=== PATIENT | female | born 1985 | race Caucasian/White ===

== ENCOUNTER 2021-08-18 08:30 | Emergency (ER) | payer OTHER ==
[~2021-08-18] VITALS: Ht 157.5 cm; Wt 85.6 kg
[2021-08-18] MEDS ORDERED: ONDA8TAB8 PO (08:59)
[2021-08-18] MEDS ORDERED: PRIL20TA2 PO (08:59)
[2021-08-18] MEDS ORDERED: NS 1,000 ML IV ONE (11:35)
[2021-08-18] MEDS ORDERED: ONDANSETRON 4MG/2ML VIAL IV ONE (12:05)
[2021-08-18 12:47] LABS: BASO % 0.2 % (0.0-1.0); EOS # 0.1 10^3/uL (0.0-0.5); EOS % 0.9 % (0.0-3.0); HEMATOCRIT 40.6 % (36.0-47.0); HEMOGLOBIN 13.8 g/dl (12.0-15.5); LYMPH # 1.8 10^3/uL (1.5-5.0); LYMPH % 20.2 % (24.0-44.0); MEAN CORPUSCULAR HEMOGLOBIN 30.1 pg (27.0-33.0); MEAN CORPUSCULAR VOLUME 88.5 fl (80.0-96.0); MONO # 0.6 10^3/uL (0.0-0.8); MONO % 6.1 % (2.0-8.0); NEUTROPHILS # 6.6 10^3/uL (1.5-8.5); NEUTROPHILS % 72.3 % (36.0-66.0); PLATELET COUNT, AUTOMATED 264 10^3/uL (150-450); RED BLOOD COUNT 4.59 10^6/uL (4.00-5.40); WHITE BLOOD COUNT 9.1 10^3/uL (4.0-10.0)
[2021-08-18 14:39] LABS: BASO % 0.2 % (0.0-1.0); EOS # 0.1 10^3/uL (0.0-0.5); EOS % 0.8 % (0.0-3.0); HEMATOCRIT 37.3 % (36.0-47.0); HEMOGLOBIN 12.8 g/dl (12.0-15.5); LYMPH # 1.5 10^3/uL (1.5-5.0); LYMPH % 16.7 % (24.0-44.0); MEAN CORPUSCULAR HEMOGLOBIN 30.8 pg (27.0-33.0); MEAN CORPUSCULAR HGB CONC 34.3 g/dl (32.0-36.5); MEAN CORPUSCULAR VOLUME 89.7 fl (80.0-96.0); MONO # 0.5 10^3/uL (0.0-0.8); MONO % 5.6 % (2.0-8.0); NEUTROPHILS % 76.3 % (36.0-66.0); PLATELET COUNT, AUTOMATED 264 10^3/uL (150-450); RED BLOOD COUNT 4.16 10^6/uL (4.00-5.40); WHITE BLOOD COUNT 9.2 10^3/uL (4.0-10.0)
[2021-08-18 15:00] LABS: ALBUMIN 3.3 GM/DL (3.2-5.2); ALT/SGPT 29 U/L (12-78); BILIRUBIN,DIRECT 0.2 MG/DL (0.0-0.2); BILIRUBIN,TOTAL 0.4 MG/DL (0.2-1.0); BLOOD UREA NITROGEN 10 MG/DL (7-18); CALCIUM LEVEL 9.1 MG/DL (8.5-10.1); CARBON DIOXIDE LEVEL 24 MEQ/L (21-32); CHLORIDE LEVEL 107 MEQ/L (98-107); GLOMERULAR FILTRATION RATE > 60.0 (>60); GLUCOSE, FASTING 84 MG/DL (70-100); LIPASE 56 U/L (73-393); POTASSIUM SERUM 3.8 MEQ/L (3.5-5.1); SODIUM LEVEL 139 MEQ/L (136-145); TOTAL PROTEIN 7.6 GM/DL (6.4-8.2)
[2021-08-18 16:45] VITALS: BP 138/85
== END 2021-08-18 16:46 | disposition home or self-care (01) ==
LOC: M ED 08:30
DX: O21.9 Vomiting of pregnancy, unspecified (principal); R10.9 Unspecified abdominal pain; Z3A.09 9 weeks gestation of pregnancy
CPT/HCPCS: 36415; 76801; 80048; 80076; 81001; 83690; 84702; 85025; 87086; 96361; 96374; 99284; J2405

== ENCOUNTER 2022-03-11 16:00 | Inpatient (IN) | payer OTHER ==
[~2022-03-11] VITALS: Ht 157.5 cm; Wt 107.8 kg
[~2022-03-11 16:00] MED LIST: ONDA8TAB8 PO; PRIL20TA2 PO
[2022-03-11] MEDS ORDERED: OXYTOCIN DRIP 30 UNITS in IV 1 EA IV PRN (16:10)
[2022-03-11] MEDS ORDERED: LIDOCAINE 1% MDV 20ML VIAL INFIL PRN (16:10)
[2022-03-11] MEDS ORDERED: CARBOPROST TROMETHAMINE 250 MCG/ML AMP IM PRN (16:10)
[2022-03-11] MEDS ORDERED: TRANEXAMIC ACID INJection 1,000 MG in NS 100 ML IV PRN (16:10)
[2022-03-11] MEDS ORDERED: METHYLERGONOVINE MALEATE 0.2 MG/ML VIAL (J2210) IM PRN (16:10)
[2022-03-11] MEDS ORDERED: LACTATED RINGER'S 1000 ML IV PRN (16:10)
[2022-03-11 16:22] VITALS: BP 130/74
[2022-03-11] MEDS ORDERED: HOME MED LIST COMPLETE! XX SCH (16:35)
[2022-03-11 17:29] VITALS: BP 143/90
[2022-03-11] MEDS ORDERED: miSOPROStol 50MCG 1/2 TABLET PO ONE (18:50)
[2022-03-11 19:03] LABS: HEMATOCRIT 39.8 % (36.0-47.0); HEMOGLOBIN 13.1 g/dl (12.0-15.5); MEAN CORPUSCULAR HEMOGLOBIN 29.4 pg (27.0-33.0); MEAN CORPUSCULAR HGB CONC 32.9 g/dl (32.0-36.5); MEAN CORPUSCULAR VOLUME 89.4 fl (80.0-96.0); PLATELET COUNT, AUTOMATED 233 10^3/uL (150-450); RED BLOOD COUNT 4.45 10^6/uL (4.00-5.40); WHITE BLOOD COUNT 11.1 10^3/uL (4.0-10.0)
[2022-03-11 19:47] LABS: GLUCOSE,RANDOM 81 MG/DL (LESS THAN 200)
[2022-03-11 20:01] VITALS: BP 122/87
[2022-03-11 20:44] VITALS: BP 130/84
[2022-03-11 21:45] VITALS: BP 111/67
[2022-03-11 22:15] VITALS: BP 134/86
[2022-03-12] VITALS (46 sets, daily range): BP systolic 100–165; BP diastolic 56–113
[2022-03-12] MEDS ORDERED: miSOPROStol 25MCG 1/4 TABLET PO SCH
[2022-03-12] MEDS ORDERED: miSOPROStol 50MCG 1/2 TABLET PO ONE (05:30)
[2022-03-12] MEDS ORDERED: OXYTOCIN DRIP 30 UNITS in IV 1 EA IV SCH ×5 (10:10→17:25)
[2022-03-12] MEDS ORDERED: FENTANYL/ROPIVACAINE/NACL BAG 100 ML EPIDURAL SCH (13:55)
[2022-03-12] MEDS ORDERED: diphenhydrAMINE 50MG/ML VIAL IV PRN (13:55)
[2022-03-12] MEDS ORDERED: LR 500 ML IV PRN (13:55)
[2022-03-12] MEDS ORDERED: ONDANSETRON 4MG 2ML VIAL IV PRN (13:55)
[2022-03-12] MEDS ORDERED: EPIDURAL/PCA KEYS XX PRN (13:55)
[2022-03-12] MEDS ORDERED: NALOXONE INJ 0.4MG/1ML VIAL IV PRN (13:55)
[2022-03-12] MEDS ORDERED: ePHEDrine SULFATE 25 MG/5 ML(5MG/ML) SYRINGE IVP PRN (13:55)
[2022-03-12] MEDS: LR 1,000 ML IV SCH ×2 (13:56→14:51)
[2022-03-12 15:49] LABS: APPEARANCE, URINE MANUAL CLEAR (CLEAR); BILIRUBIN, URINE MANUAL NEGATIVE (NEGATIVE); BLOOD URINE MANUAL NEGATIVE (NEGATIVE); COLOR, URINE MANUAL YELLOW (YELLOW); GLUCOSE, URINE (UA) MANUAL NEGATIVE (NEGATIVE); KETONE, URINE MANUAL 1+ mg/dL (NEGATIVE); LEUKOCYTE ESTERASE, URINE MAN NEGATIVE (NEGATIVE); NITRITE, URINE MANUAL NEGATIVE (NEGATIVE); PROTEIN, URINE MANUAL NEGATIVE (NEGATIVE); UROBILINOGEN, URINE MANUAL NORMAL (NORMAL)
[2022-03-12] MEDS: ACETAMINOPHEN 500 MG TAB PO PRN ×2 (16:04→22:27)
[2022-03-12 16:12] LABS: TOTAL PROTEIN,RANDOM URINE 7.2 MG/DL (0.0-14.0)
[2022-03-12 16:17] LABS: CREATININE,RANDOM URINE 30.7 MG/DL
[2022-03-12] MEDS ORDERED: IBUPROFEN 600MG TAB PO PRN (17:25)
[2022-03-12] MEDS ORDERED: ACETAMINOPHEN TAB 650MG DOSE (2X325MG) PO PRN (17:25)
[2022-03-12] MEDS ORDERED: LR 1,000 ML IV SCH (17:25)
[2022-03-12] MEDS ORDERED: RHOGAM 300 MCG (1500 IU) INJ (J2790) IM SCH (17:25)
[2022-03-12] MEDS ORDERED: ACETAMINOPHEN 500 MG TAB PO PRN (17:25)
[2022-03-12 17:34] LABS: CORD GAS ABE A -3.7; CORD GAS HCO3 A 24.6 MEQ/L; CORD GAS O2 SAT A 55.6 %; CORD GAS PCO2 A 57.3 mmHg; CORD GAS PH A 7.251 UNITS; CORD GAS PO2 A 25.1 mmHg; CORD GAS SBC A 20.3 MEQ/L; CORD GAS TCO2 A 26.4 MEQ/L
[2022-03-12 17:36] LABS: CORD GAS ABE V -2.8; CORD GAS HCO3 V 22.3 MEQ/L; CORD GAS O2 SAT V 98.2 %; CORD GAS PCO2 V 39.9 mmHg; CORD GAS PH V 7.365 UNITS; CORD GAS SBC V 22.2 MEQ/L; CORD GAS TCO2 V 23.5 MEQ/L
[2022-03-12] MEDS: DIBUCAINE 1% OINTMENT 30GM TOP PRN (20:35)
[2022-03-12] MEDS: IBUPROFEN 800 MG TAB PO PRN (20:36)
[2022-03-13] MEDS: DOCUSATE SODIUM 100MG CAPSULE PO PRN ×2 (04:08→18:02)
[2022-03-13] MEDS: ACETAMINOPHEN 500 MG TAB PO PRN (04:09)
[2022-03-13] MEDS: IBUPROFEN 800 MG TAB PO PRN ×2 (04:09→15:42)
[2022-03-13 06:00] VITALS: BP 126/82
[2022-03-13 06:58] LABS: HEMATOCRIT 38.4 % (36.0-47.0); HEMOGLOBIN 12.1 g/dl (12.0-15.5); MEAN CORPUSCULAR HEMOGLOBIN 28.7 pg (27.0-33.0); MEAN CORPUSCULAR HGB CONC 31.5 g/dl (32.0-36.5); PLATELET COUNT, AUTOMATED 161 10^3/uL (150-450); RED BLOOD COUNT 4.22 10^6/uL (4.00-5.40); WHITE BLOOD COUNT 9.6 10^3/uL (4.0-10.0)
[2022-03-13 07:31] LABS: LDH LACTATE DEHYDROGENASE 230 U/L (120-246)
[2022-03-13 07:32] LABS: ALT/SGPT 19 U/L (7.0-40); AST/SGOT 20 U/L (<34); BILIRUBIN,TOTAL 0.3 MG/DL (0.3-1.2); CREATININE FOR GFR 0.43 MG/DL (0.55-1.30); GLOMERULAR FILTRATION RATE > 60.0 (>60)
[2022-03-13 07:33] LABS: URIC ACID 4.8 MG/DL (3.1-7.8)
[2022-03-13] MEDS ORDERED: PRENATAL VITAMINS CHEWABLE TABLET PO SCH (09:00)
[2022-03-13] MEDS: ACETAMINOPH W/CODEINE #3 TAB UD PO PRN ×2 (10:32→18:03)
[2022-03-13] MEDS: DIBUCAINE 1% OINTMENT 30GM TOP PRN (18:06)
[2022-03-14] MEDS ORDERED: MEASLES,MUMPS,RUBELLA VACCINE INJ (MMR-II) (90707) SC.IMMUN ONE (09:00)
== END 2022-03-13 18:15 | disposition home or self-care (01) | DRG 807 ==
LOC: M LDI 16:00 → M OBS 03-12 20:08
PROVIDERS: ADMIT Registered Nurse; ATTEND Obstetrics & Gynecology
PROC: 3E033VJ Introduction of Other Hormone into Peripheral Vein, Percutaneous Approach (ICD-10-PCS; 2022-03-11)
PROC: 10E0XZZ Delivery of Products of Conception, External Approach (ICD-10-PCS; principal; 2022-03-12)
DX: O24.420 Gestational diabetes mellitus in childbirth, diet controlled (principal); Z37.0 Single live birth; Z3A.39 39 weeks gestation of pregnancy; Z86.16 Personal history of COVID-19; O13.4 Gestational [pregnancy-induced] hypertension without significant proteinuria, complicating childbirth; O66.0 Obstructed labor due to shoulder dystocia; O62.2 Other uterine inertia